=== PATIENT | female | born 1930 | race Caucasian/White ===

== ENCOUNTER 2018-08-08 13:05 | Emergency (ER) | payer MEDICARE, OTHER ==
--- NOTE | 2018-08-08 13:53 | CT ---
CT brain noncontrast HISTORY: Headache. Hypertension. FINDINGS: There is no evidence of acute intracranial hemorrhage or infarct. Ill-defined areas of decr eased density within the right posterior frontal periventricular white matter is favored to represent chronic ischemic small vessel disease. There is no mass effect or shift of midline structur es. Slight diffuse cortical atrophy. Calcification within the arterial structures of the brain base. IMPRESSION: Atherosclerosis. Chronic-type findings. No acute intracranial abnormalities are demonstrated.
[2018-08-08] MEDS ORDERED: Acetaminophen 325 MG TAB ONE ×2 (14:10)
== END 2018-08-08 15:20 | disposition home or self-care (01) ==
LOC: ERS 13:05
DX: I10 Essential (primary) hypertension (principal); E78.00 Pure hypercholesterolemia, unspecified; I20.9 Angina pectoris, unspecified; Z79.899 Other long term (current) drug therapy; Z79.82 Long term (current) use of aspirin
CPT/HCPCS: 70450; 93005

== ENCOUNTER 2018-08-31 15:40 | Inpatient (IN) | payer MEDICARE, OTHER ==
--- NOTE | 2018-08-31 16:05 | RAD ---
FRONTAL VIEW CHEST: 08/31/18 COMPARISON: 06/11/16. INDICATION: New onset pain. FINDINGS: There is subtle added density at the inferior left chest. The right hemidiaphragm is elevated. The ca rdiomediastinal silhouette is similar in appearance. IMPRESSION: Patchy left basilar density. This could be on the basis of scarring or subtle area of alveolar infilt ration. Recommend follow-up with two view chest for further evaluation. Code T POS: CET
[2018-08-31 16:06] LABS: #Basophils 0.1 thou/uL (0.0-0.2); #Eosinphils 0.3 thou/uL (0.0-0.7); #Lymphocytes 2.9 thou/uL (1.20-3.40); #Monocytes 0.9 thou/uL (0.11-0.59); #Neutrophils 8.5 thou/uL (1.40-6.50); %Basophils 0.8 % (0.0-1.0); %Eosinophils 2.5 % (0.0-10.0); %Neutrophils 66.7 % (42.0-75.0); Hemoglobin 13.7 g/dL (12.0-16.0); Mean Corpuscular HGB CONC 33.2 g/dL (32.0-36.0); Mean Corpuscular Hemoglobin 29.6 pg (27.0-31.0); Mean Platelet Volume 8.3 fL (7.4-10.4); Platelet Count 413 thou/uL (130-400); RBC Distribution Width 12.3 % (11.5-14.5); Red Blood Cell (RBC) Count 4.64 mill/uL (4.20-5.40); White Blood Cell (WBC) Count 12.7 thou/uL (4.8-10.8)
[2018-08-31 16:30] LABS: ALT (SGPT) 10 U/L (8-55); AST (SGOT) 16 U/L (5-34); Albumin 4.5 g/dL (3.4-4.8); Alkaline Phosphatase 47 U/L (40-150); Anion Gap 14 mmol/L (10-20); BUN (Urea Nitrogen) 45 mg/dL (9.8-20.1); Bilirubin, Total 0.3 mg/dL (0.2-1.2); CK (CPK) 32 U/L (29-168); Calc. Creatinine Clearance 0 mL/min (70-130); Calcium 10.1 mg/dL (7.8-10.44); Carbon Dioxide 22 mmol/L (23-31); Chloride 105 mmol/L (98-107); Estimated GFR-MDRD 18; Glucose 168 mg/dL (83-110); Lipase 65 U/L (8-78); Potassium 4.8 mmol/L (3.5-5.1); Protein, Total 7.5 g/dL (6.0-8.3); Sodium 136 mmol/L (136-145)
[2018-08-31] MEDS ORDERED: Aspirin Chewable 81 MG TAB ONE (16:33)
[2018-08-31] MEDS ORDERED: Nitroglycerin 2% Ointment 1 INCH/1 GM Packet ONE (16:33)
[2018-08-31] MEDS ORDERED: Sodium Chloride 0.9% 1,000 ML IV SCH (18:59)
[2018-08-31] MEDS ORDERED: Ondansetron PF 4 MG/2 ML Vial IVP PRN (18:59)
[2018-08-31] MEDS ORDERED: Ondansetron ODT 4 MG TAB SL PRN (18:59)
[2018-08-31 19:01] VITALS: BMI 24.0
[2018-08-31 19:50] LABS: Troponin I Less than 0.010 ng/mL (< 0.028)
[2018-08-31] MEDS ORDERED: Nitroglycerin 0.4 MG TAB (25 Tab Bottle) SL PRN (22:00)
[2018-08-31 22:30] LABS: Troponin I Less than 0.010 ng/mL (< 0.028)
[2018-08-31] MEDS ORDERED: Rosuvastatin 20 MG TAB PO SCH (22:30)
[2018-08-31] MEDS: Sodium Chloride 0.9% 1,000 ML IV SCH (23:31)
--- NOTE | 2018-09-01 02:27 | HP ---
PRIMARY CARE PHYSICIAN: Tommy Barrios MD CHIEF COMPLAINT: Chest pain/angina. HISTORY OF PRESENT ILLNESS: Ms. Fagan is an 87-year-old female with a past medical history of angina, hypertension, hyperlipidemia, osteoporosis, and coronary artery disease status post CABG x7, who has presented to [facility] earlier today for worsening chest pain. She states that the pain worsened when she was up and active. However, the pain resolves when she was at rest. She states that before when she would take her oral nitroglycerin at home, this would help with the pain. However, this was not helping today. Therefore, she wanted to come in to get thorough workup to rule out some causes of her chest pain. She states that she sees Dr. Mclaughlin, whom she had seen roughly 6 weeks ago for changes to her home medications. She states she had noticed her blood pressure worsening. However, after these changes, she states that her blood pressure has been better controlled. She had denied any fever, chills, any headache, blurred vision, dizziness, any palpitations, shortness of breath, abdominal pain, nausea, or vomiting. Her initial workup included serial troponins, which were found to be less than 0.010. She also was found to be with an acute kidney injury with a creatinine of 2.57, estimated GFR of 18. In the emergency department, she was started on IV fluid with normal saline, was given topical 1-inch nitroglycerin paste and oral aspirin 325 mg. It was determined at that time the patient be admitted for further workup and ACS rule out. REVIEW OF SYSTEMS: All other systems reviewed and found to be negative unless mentioned in the HPI. PAST MEDICAL HISTORY: Hypertension, hyperlipidemia, coronary artery disease, and angina. PAST SURGICAL HISTORY: Coronary artery bypass x7 vessels, bladder surgery, appendectomy, cholecystectomy, hysterectomy, tonsillectomy, and spinal fusion. PSYCHIATRIC HISTORY: None. SOCIAL HISTORY: The patient denies any alcohol, tobacco, or illicit drug use. KNOWN ALLERGIES: Codeine and sulfa. CURRENT HOME MEDICATIONS: 1. Aspirin 81 mg daily. 2. Amlodipine 2.5 mg p.o. daily. 3. Clonidine 0.1 mg p.o. p.r.n. hypertension. 4. Clopidogrel 75 mg p.o. Tuesday, Tuesday, and Tuesday. 5. Furosemide 20 mg p.o. daily. 6. Isosorbide 60 mg p.o. daily. 7. Nitroglycerin 0.4 mg sublingual every 5 minutes as needed for chest pain. 8. Benicar 40 mg p.o. daily. 9. Ranexa 500 mg p.o. b.i.d. 10. Rosuvastatin 20 mg p.o. at bedtime. 11. CoQ10 of 200 mg p.o. daily. 12. Restasis 0.4 mL each eye b.i.d. 13. Polyethylene glycol 17 g p.o. daily. 14. [place]-3 of 2 g p.o. b.i.d. 15. Fluticasone one spray each nostril daily. 16. Estradiol 10 mcg intravaginally 2 times a week. 17. Nexium 40 mg p.o. daily. 18. Vitamin D3 two tabs p.o. daily. 19. Cetirizine 10 mg p.o. at bedtime. 20. Calcium 600 mg p.o. b.i.d. PHYSICAL EXAMINATION: VITAL SIGNS: BP 167/74, respirations 18, pulse 71, temp 97.4 degrees Fahrenheit, O2 saturations 98% on room air. GENERAL: The patient is awake, alert, and oriented x3. She is currently lying comfortably in bed and in no acute distress at this time. HEENT: Atraumatic, normocephalic. Pupils are round and reactive to light. Extraocular muscles intact. Moist mucous membranes noted. CARDIOVASCULAR: Positive S1 and S2. Regular rate and rhythm. No murmur auscultated. RESPIRATORY: Clear to auscultation bilaterally. No wheezes, rales, or rhonchi. ABDOMEN: Soft and nontender. Bowel sounds present. MUSCULOSKELETAL: Strength 5+ bilaterally in upper and lower extremities. Moves all extremities equal. Pedal and radial pulses are 2+ bilaterally. No edema noted. NEUROLOGIC: Cranial nerves 2 through 12 grossly intact. No focal deficits noted. Speech intact and normal. Gait not assessed. SKIN: Warm, dry, and intact. No rashes. No ulceration noted. PSYCHIATRIC: Good mood and affect. LABORATORY DATA: WBC 12.7, RBC 4.64, hemoglobin 13.7, platelets 413. Sodium 136, potassium 4.8, anion gap 14, BUN 45, creatinine 2.57, estimated GFR 18, glucose 168. Troponin less than 0.010. BNP 37.9. Lipase 65. DIAGNOSTIC IMAGING: Portable chest x-ray showed patchy left basilar density. This could be on the basis of scarring or subtle area of alveolar infiltration. Recommend followup with two-view chest for further evaluation. ASSESSMENT AND PLAN: 1. Unstable angina. The patient will be restarted on her home medications at this time. We will order stress test for the morning to rule out acute coronary syndrome and Cardiology Services will be consulted for further evaluation and any further recommendation on adjusting her home medications. 2. Hypertension. Continue patient's home regimen and to monitor blood pressure and other vital signs closely. 3. Hyperlipidemia. Continue patient's home statin and check a lipid panel in the morning. 4. History of coronary artery disease. As above, continue on patient's home regimen. 5. Deep venous thrombosis and gastrointestinal prophylaxis. 6. Code status, full code. 7. Surrogate decision maker is her , Rudy. DISPOSITION: Pending further workup and clinical findings. Job ID: [id number]
[2018-09-01 05:33] LABS: #Basophils 0.1 thou/uL (0.0-0.2); #Eosinphils 0.5 thou/uL (0.0-0.7); #Lymphocytes 3.1 thou/uL (1.20-3.40); #Monocytes 0.9 thou/uL (0.11-0.59); #Neutrophils 7.6 thou/uL (1.40-6.50); %Basophils 0.6 % (0.0-1.0); %Eosinophils 4.1 % (0.0-10.0); %Lymphocytes 25.8 % (21.0-51.0); %Monocytes 7.4 % (0.0-10.0); %Neutrophils 62.1 % (42.0-75.0); Hemoglobin 11.6 g/dL (12.0-16.0); Mean Corpuscular HGB CONC 32.6 g/dL (32.0-36.0); Mean Corpuscular Hemoglobin 29.3 pg (27.0-31.0); Mean Corpuscular Volume 89.8 fL (78.0-98.0); Mean Platelet Volume 8.4 fL (7.4-10.4); Platelet Count 309 thou/uL (130-400); RBC Distribution Width 12.2 % (11.5-14.5); Red Blood Cell (RBC) Count 3.96 mill/uL (4.20-5.40); White Blood Cell (WBC) Count 12.2 thou/uL (4.8-10.8)
[2018-09-01 05:38] LABS: Anion Gap 9 mmol/L (10-20); BUN (Urea Nitrogen) 36 mg/dL (9.8-20.1); Calc. Creatinine Clearance 21 mL/min (70-130); Calcium 8.8 mg/dL (7.8-10.44); Carbon Dioxide 22 mmol/L (23-31); Cardiac Risk 3.2 (Less than 4.5); Chloride 110 mmol/L (98-107); Cholesterol 112 mg/dl (< 200 Desired); Estimated GFR-MDRD 26; Glucose 99 mg/dL (83-110); HDL Cholesterol 35 mg/dL (>60 Neg Risk); LDL Cholesterol, Calculated 39 mg/dL; Potassium 4.3 mmol/L (3.5-5.1); Sodium 137 mmol/L (136-145); Triglycerides 192 mg/dL (Less than 150)
[2018-09-01] MEDS: Aspirin 81 mg Enteric Coated Tablet PO SCH (08:30)
[2018-09-01] MEDS: Ubidecarenone 50 MG CAP PO SCH (08:31)
[2018-09-01] MEDS: Furosemide 20 MG TAB PO SCH (08:32)
[2018-09-01] MEDS: Clopidogrel Bisulfate 75 MG TAB PO SCH (08:32)
[2018-09-01 08:53] LABS: Lactic Acid 0.6 mmol/L (0.5-2.2)
[2018-09-01] MEDS ORDERED: Amlodipine 5 MG TAB PO SCH ×2 (09:00→19:13)
[2018-09-01] MEDS ORDERED: ADENOSINE 60 MG/20 ML VIAL ONE (10:35)
[2018-09-01] MEDS: Polyethylene Glycol 3350 17 GM Packet PO SCH (12:54)
--- NOTE | 2018-09-01 13:20 | NM ---
Radionucleotide stress and rest myocardial perfusion scan with CT attenuation correction and SPECT im aging Left ventricular wall motion evaluation and ejection fraction HISTORY: Chest pain. FINDINGS: Adenosine protocol. There is heterogeneous uptake of radiotracer throughout the left ventri cular myocardium. On the perfusion images, a moderate sized area of markedly diminished radiotracer uptake involves the entirety of the anteroseptal wall on the stress images with more normal distribut ion of radiotracer uptake on the rest images. No other perfusion defect or reversibility demonstrated. QGS analysis of gated SPECT images shows no focal wall motion abnormalities. Ejection fraction calcul ated at 77%. IMPRESSION: Abnormal myocardial perfusion scan showing reversibility at the anteroseptal wall suggest renetta of ischemia. Preserved LVEF.
--- NOTE | 2018-09-01 13:32 | PDOC.CTH ---
Cardiology Progress Note - Objective Vital Signs Temp Pulse Resp BP BP Pulse Ox 09/01/18 12:50 97.5 F L 59 L 16 175/77 H 98 09/01/18 08:30 58 L 09/01/18 07:21 97.4 F L 64 16 145/63 H 99 09/01/18 04:43 97.8 F 71 18 131/66 97 Weight 59.602 kg 08/31/18 09/01/18 09/02/18 06:59 06:59 06:59 Intake Total 890 Output Total 900 675 Balance -10 -885 - Labs Result Diagrams: 09/01/18 04:43 09/01/18 04:44 Troponin/CKMB Troponin I Less than 0.010 ng/mL (< 0.028) 08/31/18 21:58 - Assessment/Plan HPI: This is an 87 yo F who was admitted for ACS r/o. She had CABG in 2000 and again in 2007. Most recent cath was in 2015 which showed 3 vessel disease with patent grafts. Yesterday afternoon while walking back to her room from dinner she developed left sided chest pain described as band-like wrapping around to her back. She states that the pain radiated down her left arm and last about 30-40 minutes. She took some nitroglycerin at home but did not get relief until receiving treatment at the ER. She states that in the last 3 months she has had 4-5 episodes of chest pain similar to this one. She denies shortness of breath, palpitations, diaphoresis, leg pain, or recent immobilization. PMH: HTN, HLD, CAD PSH: hysterectomy, cholecystectomy, appendectomy, cervical fusion Meds: isosorbide, olmesartan, amlodipine, rosuvastatin, clonidine, clonidine, estradiol vaginally, asa, nitroglycerin, Plavix, ranexa Allergies: sulfa Soc Hx: no smoking, alcohol, or drugs Fm Hx: father from [place] at 62 REVIEW OF SYSTEMS: Gen: no fever, chills, or sweats Neuro: no numbness/tingling, no weakness, no headache Eyes: no visual changes ENT: no hearing changes, no sore throat, no runny nose Resp: no cough, no SOB, no wheeze Card: see hpi GI: no N/V/D, no abdominal pain Skin: no rash, no erythema PHYSICAL EXAMINATION: General: NAD, alert and oriented x3 HEENT: PERRLA, EOMI, normal sclera, oropharynx without erythema or exudate Neck: Supple. Full ROM. Heart/Cardiovascular System: RRR, Cap refill < 3 seconds, no rub, no murmur, pain to palpation of chest wall Lungs/Respiratory System: clear to auscultation bilaterally. No increased work of breathing. Room air. Abdomen/Gastro-Intestinal System: no abdominal tenderness, normal bowel sounds, no masses, no organomegaly Extremities: Warm extremities. No cyanosis or edema. Neuro: No gross deficits appreciated Psychiatry: Awake, Alert and cooperative with exam Skin: No lesions, rashes, or ulcers A/P: # Chest pain, r/o ACS - trop neg x2 - EKG shows t-inv in V4, no q-waves, st changes - last cath Mar 2015 showed 3 vessel disease with patent grafts - abnormal stress test, patient may need catheterization, will discuss with Dr. Pinzon and family # HTN - would recommend titrating up on amlodipine, only at 2.5mg as of now - Plan to be reviewed with Dr. Pinzon see note to follow
[2018-09-01 13:34] LABS: Bilirubin Negative (Negative); Blood, Urine Trace (Negative); Clarity CLOUDY (Clear); Glucose, Urine (Dipstick) Negative (Negative); Leukocyte Large (Negative); Nitrite Negative (Negative); Protein, Urine (Dipstick) Negative (Neg-Trace); Specific Gravity, Urine 1.007 (1.002-1.036); Urobilinogen 0.2 mg/dL (0.2-1.0); pH, Urine 6.5 (5.0-9.0)
[2018-09-01 13:37] LABS: Hyaline Casts/LPF 0-3 HYALINE CAST LPF (0-3 Hyaline); Pathc Cast-AUWi Flag 0.13 (0-2.49); RBC/HPF 0-3 HPF (0-3); Squamous Epithelial None Seen HPF (0-3)
--- NOTE | 2018-09-01 13:40 | PDOC.PN ---
- Subjective Encounter Start Date: 09/01/18 Encounter Start Time: 13:38 Subjective: Patient presented with central chest pressure and states it has been -: constant. Slightly worsened during stress test, but not back to what it was -: when she presented. Unable to rate severity, as she states its not "pain". She complains of feeling hungry but otherwise has no complaints. No sob. No n/v. Denies any abdominal pain. No lower leg swelling. - Objective Vital Signs & Weight: Vital Signs (12 hours) Temp Pulse Resp BP BP Pulse Ox 09/01/18 12:50 97.5 F L 59 L 16 175/77 H 98 09/01/18 08:30 58 L 09/01/18 07:21 97.4 F L 64 16 145/63 H 99 09/01/18 04:43 97.8 F 71 18 131/66 97 Weight Weight 131 lb 6.4 oz I&O: 08/31/18 09/01/18 09/02/18 06:59 06:59 06:59 Intake Total 890 Output Total 900 675 Balance -10 675 Result Diagrams: 09/01/18 04:43 09/01/18 04:44 Phys Exam - Physical Examination Constitutional: NAD HEENT: PERRLA, moist MMs, sclera anicteric, oral pharynx no lesions Neck: no nodes, no JVD, supple, full ROM Respiratory: no wheezing, no rales, no rhonchi, clear to auscultation bilateral Cardiovascular: RRR Gastrointestinal: soft, non-tender, no distention, positive bowel sounds Musculoskeletal: no edema, pulses present Neurological: non-focal, normal sensation, moves all 4 limbs Lymphatic: no nodes Psychiatric: normal affect, A&O x 3 Skin: no rash Dx/Plan (1) Chest pain Code(s): R07.9 - CHEST PAIN, UNSPECIFIED Status: Acute Plan: Persisting chest pressure, since admission. Worsened during stress test. Patient with abnormal myocardial perfusion scan. Notable for reversibility at the anteroseptal wall suggesting ischemia. EF 77% Patient awaiting cardio review. We will keep her NPO pending recommendations. (2) Hypertension Code(s): I10 - ESSENTIAL (PRIMARY) HYPERTENSION Status: Chronic Plan: Continue meds and monitor BP. (3) Hyperlipidemia Code(s): E78.5 - HYPERLIPIDEMIA, UNSPECIFIED Status: Acute (4) CAP (community acquired pneumonia) Code(s): J18.9 - PNEUMONIA, UNSPECIFIED ORGANISM Status: Acute Plan: Omnicef 300 mg PO daily. Monitor WCC. - Plan cont current plan of care * .
[2018-09-01 14:04] LABS: Bacteria/HPF 4+ HPF (None Seen); Yeast-All Forms None Seen HPF (None Seen)
[2018-09-01 14:06] LABS: Urine Culture Reflex Yes Yes
[2018-09-01] MEDS ORDERED: Cefdinir 300 MG CAP PO SCH (14:30)
--- NOTE | 2018-09-01 17:10 | CON ---
DATE OF CONSULTATION: REASON FOR CONSULTATION: Chest pain. HISTORY OF PRESENT ILLNESS: Ms. Fagan is a very pleasant 87-year-old woman, who is a patient of Dr. Kavin Mclaughlin. She has a history of CAD, status post bypass surgery. She recently presented with accelerating angina. She states she has had angina in the past and had been treated medically. She underwent coronary angiography in 2016 with images of the angio reviewed. She does have an occluded left main and right coronary artery. She has a VELAZQUEZ to the LAD that appears atretic. Her saphenous vein graft to the diagonal branch is patent with backfilling of the LAD. The LAD appears diffusely diseased. The circumflex artery has a saphenous vein graft noted with a jump graft in OM1 and OM2 and has a saphenous vein graft to the right coronary artery. She does have diffuse disease present within the LAD and septal branches. PAST MEDICAL HISTORY: Please see note per Felix Casper MD, dated 09/01/2018. PHYSICAL EXAMINATION: GENERAL: Patient is a pleasant woman who is in no acute distress. The patient appears their stated age. VITAL SIGNS: Blood pressure 138/65, pulse 75, temperature 97.5. NEUROLOGIC: The patient is alert and oriented x3 with no focal neurologic deficits. HEENT: Sclerae without icterus. Mouth has moist mucous membranes with normal pallor. NECK: No JVD. Carotid upstroke brisk. No bruits bilaterally. LUNGS: Clear to auscultation with unlabored respirations. BACK: No scoliosis or kyphosis. CARDIAC: Regular rate and rhythm with normal S1 and S2. No S3 or S4 noted. No significant rubs, murmurs, thrills, or gallops noted throughout the precordium. PMI is not displaced. There is no parasternal heave. ABDOMEN: Soft, nontender, nondistended. No peritoneal signs present. No hepatosplenomegaly. No abnormal striae. EXTREMITIES: 2+ femoral and 2+ dorsalis pedis pulses. No cyanosis, clubbing, or edema. SKIN: No gross abnormalities. PERTINENT LABORATORY DATA: Hemoglobin 11.6. Creatinine 1.82 with a creatinine clearance of 20. Stress/rest myocardial perfusion study - LVEF 77% with reversibility along the anteroseptal region. IMPRESSION: 1. Angina. 2. Severe coronary artery disease. 3. Status post bypass surgery. 4. Advanced chronic kidney disease. RECOMMENDATIONS: Certainly difficult situation with Ms. Fagan. I would like to proceed with angio to assess her coronary anatomy, but given her recent stress study with anteroseptal ischemia and reviewing her angio, this is unlikely to be revascularized. She also has a creatinine clearance of 20, which would increase her risk of further contrast nephropathy in addition to a potential renal failure. I have discussed the option with the family. We have all opted to proceed with continued medical therapy. We will change her Imdur to nitroglycerin patch. We will continue Ranexa in addition to beta-rani therapy. I have asked her to walk around and reassess symptoms. Plan is to monitor over the next 24 to 48 hours. If she is stable from a medical standpoint, it would be okay for discharge. If continues to have pain, we will then discuss proceeding with angio, but concerned for contrast nephropathy given advanced chronic kidney disease. The family would like to defer angio unless strongly recommended, which at this point is not. Job ID: [id number]
[2018-09-01] MEDS: Sodium Chloride 0.9% 1,000 ML IV SCH (19:13)
[2018-09-01] MEDS: Rosuvastatin 20 MG TAB PO SCH (21:41)
[2018-09-02] MEDS: cloNIDine 0.1 MG TAB PO PRN (00:21)
[2018-09-02 07:33] LABS: #Basophils 0.1 thou/uL (0.0-0.2); #Eosinphils 0.5 thou/uL (0.0-0.7); #Lymphocytes 2.8 thou/uL (1.20-3.40); #Monocytes 0.6 thou/uL (0.11-0.59); #Neutrophils 3.7 thou/uL (1.40-6.50); %Eosinophils 6.5 % (0.0-10.0); %Lymphocytes 36.5 % (21.0-51.0); %Monocytes 7.5 % (0.0-10.0); %Neutrophils 48.5 % (42.0-75.0); Hemoglobin 12.8 g/dL (12.0-16.0); Mean Corpuscular HGB CONC 33.2 g/dL (32.0-36.0); Mean Corpuscular Hemoglobin 29.8 pg (27.0-31.0); Mean Corpuscular Volume 89.7 fL (78.0-98.0); Mean Platelet Volume 8.3 fL (7.4-10.4); Platelet Count 324 thou/uL (130-400); RBC Distribution Width 12.3 % (11.5-14.5); Red Blood Cell (RBC) Count 4.31 mill/uL (4.20-5.40); White Blood Cell (WBC) Count 7.7 thou/uL (4.8-10.8)
[2018-09-02] MEDS: Clopidogrel Bisulfate 75 MG TAB PO SCH (07:48)
[2018-09-02] MEDS: Polyethylene Glycol 3350 17 GM Packet PO SCH (07:48)
[2018-09-02] MEDS: Ubidecarenone 50 MG CAP PO SCH (07:49)
[2018-09-02] MEDS: Furosemide 20 MG TAB PO SCH (07:49)
[2018-09-02] MEDS: Aspirin 81 mg Enteric Coated Tablet PO SCH (07:49)
[2018-09-02] MEDS: Cefdinir 300 MG CAP PO SCH (07:49)
[2018-09-02 08:00] LABS: Anion Gap 10 mmol/L (10-20); BUN (Urea Nitrogen) 24 mg/dL (9.8-20.1); Calc. Creatinine Clearance 27 mL/min (70-130); Calcium 9.6 mg/dL (7.8-10.44); Carbon Dioxide 23 mmol/L (23-31); Chloride 110 mmol/L (98-107); Estimated GFR-MDRD 35; Glucose 100 mg/dL (83-110); Potassium 4.3 mmol/L (3.5-5.1); Sodium 139 mmol/L (136-145)
[2018-09-02] MEDS ORDERED: Nitroglycerin 0.4mg/Hour PATCH TD SCH (09:00)
--- NOTE | 2018-09-02 13:36 | PDOC.CTH ---
Cardiology Progress Note - Subjective c/o BP spiking last night and this morning. Also had diarrhea this morning. Mild CP, but improved. - Objective Vital Signs Temp Pulse Resp BP Pulse Ox 09/02/18 11:30 97.9 F 58 L 18 129/62 93 L 09/02/18 09:59 62 109/60 09/02/18 07:48 59 L 09/02/18 07:14 97.9 F 59 L 18 183/79 H 95 09/02/18 04:00 97.9 F 55 L 18 107/54 L 97 09/02/18 02:10 63 105/54 L Weight 131 lb 6.4 oz 09/01/18 09/02/18 09/03/18 06:59 06:59 06:59 Intake Total 890 1362 Output Total 900 975 Balance -10 387 - Physical Examination General/Neuro: alert & oriented x3 Neck: no JVD present Lungs: CTA Heart: RRR Abdomen: NT/ND - Telemetry Telemetry Rhythm: SR - Labs Result Diagrams: 09/02/18 07:17 09/02/18 07:17 Troponin/CKMB Troponin I Less than 0.010 ng/mL (< 0.028) 08/31/18 21:58 - Assessment/Plan 1. CP, probable angina 2. CKD 3. Diarrhea secondary to IBS 4. Labile HTN Continue IV fluids and current meds. Observe. If pain reoccurs discussed possible angio again. Advised patient to walk as she can. Fall prevention discussed given diarrhea. Pt was seen and examined. Agree with the above assessment. Increase norvasc and increase nitro patch Pt with midl CP with exertion Difficult situation given comorbidities
--- NOTE | 2018-09-02 15:02 | PDOC.PN ---
- Subjective Encounter Start Date: 09/02/18 Encounter Start Time: 09:00 Subjective: pt up in bed complains of chest pain - Objective Vital Signs & Weight: Vital Signs (12 hours) Temp Pulse Resp BP Pulse Ox 09/02/18 11:30 97.9 F 58 L 18 129/62 93 L 09/02/18 09:59 62 109/60 09/02/18 07:48 59 L 09/02/18 07:14 97.9 F 59 L 18 183/79 H 95 09/02/18 04:00 97.9 F 55 L 18 107/54 L 97 Weight Weight 131 lb 6.4 oz I&O: 09/01/18 09/02/18 09/03/18 06:59 06:59 06:59 Intake Total 890 1362 Output Total 900 975 Balance -10 387 Result Diagrams: 09/02/18 07:17 09/02/18 07:17 Phys Exam - Physical Examination Neck: no nodes, no JVD, supple, full ROM Respiratory: no wheezing, no rales, no rhonchi, wheezing present, clear to auscultation bilateral Cardiovascular: RRR, no significant murmur, no rub, gallop, irregular Gastrointestinal: soft, non-tender, no distention, positive bowel sounds Dx/Plan (1) Chest pain Code(s): R07.9 - CHEST PAIN, UNSPECIFIED Status: Acute (2) UTI (urinary tract infection) Status: Acute (3) CAP (community acquired pneumonia) Code(s): J18.9 - PNEUMONIA, UNSPECIFIED ORGANISM Status: Acute (4) Irritable bowel syndrome Status: Acute - Plan pt had 4 bouts of diarrhea today, will add probiotic. she has IBS -: pt had some chest pain and has been having labile bp. -: renal function improving * . Review of Systems - Review of Systems Respiratory: negative: Cough, Dry, Shortness of Breath, Hemoptysis, SOB with Excertion, Pleuritic Pain, Sputum, Wheezing Cardiovascular: chest pain - Medications/Allergies Allergies/Adverse Reactions: Allergies Allergy/AdvReac Type Severity Reaction Status Date / Time codeine Allergy N/V, Verified 03/11/15 23:54 HALLUCINATIONS Sulfa (Sulfonamide Allergy SEVERE N/V Verified 03/11/15 23:54 Antibiotics) Medications: Current Medications Acetaminophen (Tylenol) 650 mg PO Q6H PRN PRN Reason: Fever>101/(Mi/Mod/Sev) Pain Amlodipine Besylate (Norvasc) 5 mg PO DAILY [facility] Last Admin: 09/02/18 07:48 Dose: 5 mg Aspirin (Ecotrin) 81 mg PO DAILY [facility] Last Admin: 09/02/18 07:49 Dose: 81 mg Cefdinir (Omnicef) 300 mg PO DAILY [facility] Last Admin: 09/02/18 07:49 Dose: 300 mg Clonidine (Catapres) 0.1 mg PO DAILYPRN PRN PRN Reason: PRN SBP > 190 Last Admin: 09/02/18 00:21 Dose: 0.1 mg Clopidogrel Bisulfate (Plavix) 75 mg PO MWF [facility] Last Admin: 09/02/18 07:48 Dose: 75 mg Coenzyme Q10 (Coenzyme Q10) 200 mg PO DAILY [facility] Last Admin: 09/02/18 07:49 Dose: 200 mg Furosemide (Lasix) 20 mg PO DAILY [facility] Last Admin: 09/02/18 07:49 Dose: 20 mg Sodium Chloride (Normal Saline 0.9%) 1,000 mls @ 50 mls/hr IV .Q20H [facility] Last Admin: 09/01/18 19:13 Dose: 1,000 mls Nitroglycerin (Nitrostat) 0.4 mg SL Q5MIN PRN PRN Reason: Chest Pain Nitroglycerin (Nitro-Dur 0.4mg/Hr Patch) 1 patch TD DAILY [facility] Last Admin: 09/02/18 07:48 Dose: 1 patch Olmesartan (Benicar) 40 mg PO DAILY [facility] Last Admin: 09/02/18 07:49 Dose: 40 mg Polyethylene Glycol (Miralax) 17 gm PO DAILY [facility] Last Admin: 09/02/18 07:48 Dose: Not Given Ranolazine (Ranexa) 500 mg PO BID [facility] Last Admin: 09/02/18 07:48 Dose: 500 mg Rosuvastatin Calcium (Crestor) 20 mg PO HS [facility] Last Admin: 09/01/18 21:41 Dose: 20 mg Saccharomyces Boulardii (Florastor) 250 mg PO DAILY [facility] Sodium Chloride (Flush - Normal Saline) 10 ml IVF Q12HR [facility] Last Admin: 09/02/18 07:50 Dose: 10 ml Sodium Chloride (Flush - Normal Saline) 10 ml IVF PRN PRN PRN Reason: Saline Flush
--- NOTE | 2018-09-02 15:09 | EKG ---
Test Reason : Blood Pressure : / mmHG Vent. Rate : 076 BPM Atrial Rate : 076 BPM P-R Int : 150 ms QRS Dur : 076 ms QT Int : 352 ms P-R-T Axes : 058 046 106 degrees QTc Int : 396 ms Normal sinus rhythm Possible Left atrial enlargement Nonspecific ST and T wave abnormality Abnormal ECG Confirmed by AMARI NG ([id number]), publication editor MORELIA KEITH ([id number]) on 09/02/2018 3:09:00 PM Referred By: Confirmed By:AMARI NG
[2018-09-02] MEDS: Sodium Chloride 0.9% 1,000 ML IV SCH (16:56)
[2018-09-02] MEDS: Saccharomyces boulardii 250 MG CAP PO SCH (16:59)
[2018-09-02] MEDS: Rosuvastatin 20 MG TAB PO SCH (21:30)
[2018-09-03] MEDS: Cefdinir 300 MG CAP PO SCH (08:27)
[2018-09-03] MEDS: Amlodipine 5 MG TAB PO SCH (08:28)
[2018-09-03] MEDS: Ubidecarenone 50 MG CAP PO SCH (08:29)
[2018-09-03] MEDS: Aspirin 81 mg Enteric Coated Tablet PO SCH (08:29)
[2018-09-03] MEDS: Nitroglycerin 0.6mg/Hour PATCH TD SCH (08:29)
[2018-09-03] MEDS: Furosemide 20 MG TAB PO SCH (08:29)
[2018-09-03] MEDS: Polyethylene Glycol 3350 17 GM Packet PO SCH (08:30)
--- NOTE | 2018-09-03 11:14 | PDOC.CTH ---
Cardiology Progress Note - Subjective Patient now with UTI. Says she walked two hallways yesterday and had chest pressure by the end of the walk. None at rest. BP still somewhat labile, but improved. - Objective Vital Signs Temp Pulse Resp BP Pulse Ox 09/03/18 08:28 65 09/03/18 07:18 98.3 F 65 18 167/72 H 95 09/03/18 03:16 98.4 F 60 15 134/63 97 Weight 132 lb 3.2 oz 09/02/18 09/03/18 09/04/18 06:59 06:59 06:59 Intake Total 1362 920 Output Total 975 1850 Balance 387 -930 - Physical Examination General/Neuro: alert & oriented x3 Neck: no JVD present Lungs: CTA Heart: RRR Abdomen: NT/ND - Telemetry Telemetry Rhythm: SR - Labs Result Diagrams: 09/02/18 07:17 09/03/18 11:09 Troponin/CKMB Troponin I Less than 0.010 ng/mL (< 0.028) 08/31/18 21:58 - Assessment/Plan 1. CP, probable angina 2. CKD 3. Diarrhea secondary to IBS 4. Labile HTN Continue nitrates and Ranexa. BP improved overall though still labile. She is currently in bed. Advised her to walk after lunch in [place]. If CP reoccurs, will probably need repeat angio. Aware of risk of contrast nephropathy. Pt continues with CP noted with ambulation. Pt on ranexa and nitro patch. Attempted medical therapy to relive symptoms. Despite meds, it continues. Pt at increased risk of complications during angio. Pt understands and family understand the risk of contrast nephropathy. May need to stage the angio. R/B discussed with pt and =family. Start IVF. Dr. Mclaughlin to discuss with pt in am
[2018-09-03] MEDS: Sodium Chloride 0.9% 1,000 ML IV SCH ×2 (11:42→15:16)
[2018-09-03 11:52] LABS: Anion Gap 13 mmol/L (10-20); BUN (Urea Nitrogen) 21 mg/dL (9.8-20.1); Calc. Creatinine Clearance 26 mL/min (70-130); Calcium 8.9 mg/dL (7.8-10.44); Carbon Dioxide 21 mmol/L (23-31); Estimated GFR-MDRD 34; Glucose 175 mg/dL (83-110)
[2018-09-03 12:09] LABS: Chloride 108 mmol/L (98-107); Sodium 138 mmol/L (136-145)
--- NOTE | 2018-09-03 14:27 | PDOC.PN ---
- Subjective Encounter Start Date: 09/03/18 Encounter Start Time: 10:15 Subjective: pt up ambulating had some cp - Objective Vital Signs & Weight: Vital Signs (12 hours) Temp Pulse Resp BP Pulse Ox 09/03/18 11:25 98.3 F 62 17 139/63 94 L 09/03/18 08:28 65 09/03/18 07:18 98.3 F 65 18 167/72 H 95 09/03/18 03:16 98.4 F 60 15 134/63 97 Weight Weight 132 lb 3.2 oz I&O: 09/02/18 09/03/18 09/04/18 06:59 06:59 06:59 Intake Total 1362 920 Output Total 975 1850 Balance 387 -930 Result Diagrams: 09/02/18 07:17 09/03/18 11:09 Phys Exam - Physical Examination Neck: no nodes, no JVD, supple, full ROM Respiratory: no wheezing, no rales, no rhonchi, wheezing present, clear to auscultation bilateral Cardiovascular: RRR, no significant murmur, no rub, gallop, irregular Gastrointestinal: soft, non-tender, no distention, positive bowel sounds Dx/Plan (1) Chest pain Code(s): R07.9 - CHEST PAIN, UNSPECIFIED Status: Acute (2) UTI (urinary tract infection) Status: Acute (3) CAP (community acquired pneumonia) Code(s): J18.9 - PNEUMONIA, UNSPECIFIED ORGANISM Status: Acute (4) CKD (chronic kidney disease) stage 3, GFR 30-59 ml/min Code(s): N18.3 - CHRONIC KIDNEY DISEASE, STAGE 3 (MODERATE) Status: Acute - Plan will continue to monitor, she is still having cp -: on abx for uti, possible angio per cardio however she is -: at a risk for nephropathy from contrast * . Review of Systems - Review of Systems Respiratory: negative: Cough, Dry, Shortness of Breath, Hemoptysis, SOB with Excertion, Pleuritic Pain, Sputum, Wheezing Cardiovascular: negative: chest pain, palpitations, orthopnea, paroxysmal nocturnal dyspnea, edema, light headedness, other Gastrointestinal: negative: Nausea, Vomiting, Abdominal Pain, Diarrhea, Constipation, Melena, Hematochezia, Other - Medications/Allergies Allergies/Adverse Reactions: Allergies Allergy/AdvReac Type Severity Reaction Status Date / Time codeine Allergy N/V, Verified 03/11/15 23:54 HALLUCINATIONS Sulfa (Sulfonamide Allergy SEVERE N/V Verified 03/11/15 23:54 Antibiotics) Medications: Current Medications Acetaminophen (Tylenol) 650 mg PO Q6H PRN PRN Reason: Fever>101/(Mi/Mod/Sev) Pain Amlodipine Besylate (Norvasc) 7.5 mg PO DAILY [facility] Last Admin: 09/03/18 08:28 Dose: 7.5 mg Aspirin (Ecotrin) 81 mg PO DAILY [facility] Last Admin: 09/03/18 08:29 Dose: 81 mg Cefdinir (Omnicef) 300 mg PO DAILY [facility] Last Admin: 09/03/18 08:27 Dose: 300 mg Clonidine (Catapres) 0.1 mg PO DAILYPRN PRN PRN Reason: PRN SBP > 190 Last Admin: 09/02/18 00:21 Dose: 0.1 mg Clopidogrel Bisulfate (Plavix) 75 mg PO MWF [facility] Last Admin: 09/02/18 07:48 Dose: 75 mg Coenzyme Q10 (Coenzyme Q10) 200 mg PO DAILY [facility] Last Admin: 09/03/18 08:29 Dose: 200 mg Furosemide (Lasix) 20 mg PO DAILY [facility] Last Admin: 09/03/18 08:29 Dose: 20 mg Nitroglycerin (Nitrostat) 0.4 mg SL Q5MIN PRN PRN Reason: Chest Pain Nitroglycerin (Nitro-Dur 0.6mg/Hr Patch) 1 patch TD DAILY [facility] Last Admin: 09/03/18 08:29 Dose: 1 patch Olmesartan (Benicar) 40 mg PO DAILY [facility] Last Admin: 09/03/18 08:29 Dose: 40 mg Polyethylene Glycol (Miralax) 17 gm PO DAILY [facility] Last Admin: 09/03/18 08:30 Dose: Not Given Ranolazine (Ranexa) 500 mg PO BID [facility] Last Admin: 09/03/18 08:26 Dose: 500 mg Rosuvastatin Calcium (Crestor) 20 mg PO HS [facility] Last Admin: 09/02/18 21:30 Dose: 20 mg Saccharomyces Boulardii (Florastor) 250 mg PO 1600 [facility] Last Admin: 09/02/18 16:59 Dose: 250 mg Sodium Chloride (Flush - Normal Saline) 10 ml IVF Q12HR [facility] Last Admin: 09/03/18 08:26 Dose: 10 ml Sodium Chloride (Flush - Normal Saline) 10 ml IVF PRN PRN PRN Reason: Saline Flush
[2018-09-03] MEDS: Acetaminophen 325 MG TAB PO PRN (14:40)
[2018-09-03] MEDS: Saccharomyces boulardii 250 MG CAP PO SCH (15:33)
[2018-09-03] MEDS: Rosuvastatin 20 MG TAB PO SCH (21:09)
[2018-09-04] MEDS: Sodium Chloride 0.9% 1,000 ML IV SCH (03:18)
[2018-09-04 04:10] LABS: Anion Gap 13 mmol/L (10-20); BUN (Urea Nitrogen) 19 mg/dL (9.8-20.1); Calc. Creatinine Clearance 29 mL/min (70-130); Calcium 9.2 mg/dL (7.8-10.44); Carbon Dioxide 21 mmol/L (23-31); Chloride 110 mmol/L (98-107); Estimated GFR-MDRD 38; Glucose 110 mg/dL (83-110); Potassium 3.6 mmol/L (3.5-5.1); Sodium 140 mmol/L (136-145)
[2018-09-04] MEDS: Nitroglycerin 0.6mg/Hour PATCH TD SCH (06:13)
[2018-09-04] MEDS: Cefdinir 300 MG CAP PO SCH ×3 (06:14→20:15)
[2018-09-04] MEDS: Amlodipine 5 MG TAB PO SCH (06:14)
[2018-09-04] MEDS: Ubidecarenone 50 MG CAP PO SCH (06:15)
[2018-09-04] MEDS: Aspirin 81 mg Enteric Coated Tablet PO SCH (06:15)
--- NOTE | 2018-09-04 07:40 | PDOC.PN ---
- Subjective Encounter Start Date: 09/04/18 Encounter Start Time: 10:40 Subjective: Patient with chest pain with any activity, none at rest. No other complaint - Objective MAR Reviewed: Yes Vital Signs & Weight: Vital Signs (12 hours) Temp Pulse Resp BP BP Pulse Ox 09/04/18 07:06 97.7 F 65 16 150/63 H 97 09/04/18 06:14 64 149/66 H 09/04/18 03:15 98 F 64 18 149/66 H 97 09/03/18 23:55 66 180/75 H 09/03/18 20:00 98.2 F 66 18 182/72 H 95 Weight Weight 132 lb 3.2 oz I&O: 09/03/18 09/04/18 09/05/18 06:59 06:59 06:59 Intake Total 920 Output Total 1850 Balance -930 Result Diagrams: 09/02/18 07:17 09/04/18 03:32 Phys Exam - Physical Examination Constitutional: NAD HEENT: moist MMs Respiratory: no wheezing, no rales, no rhonchi Cardiovascular: RRR, no significant murmur Gastrointestinal: soft Musculoskeletal: no edema Neurological: non-focal, moves all 4 limbs Psychiatric: normal affect, A&O x 3 Dx/Plan (1) Chest pain Code(s): R07.9 - CHEST PAIN, UNSPECIFIED Status: Acute Comment: exertional angina, not improved with medical therapy, likely cath, hydrating kidneys and awaiting decision by Dr. Mclaughlin (2) UTI (urinary tract infection) Status: Acute Qualifiers: Urinary tract infection type: acute cystitis Comment: Klebsiella pneumonia sp, on Omnicef since 09/01, renally dosed, increase to BID with improved GFR (3) CAP (community acquired pneumonia) Code(s): J18.9 - PNEUMONIA, UNSPECIFIED ORGANISM Status: Suspected Qualifiers: Laterality: left Lung location: lower lobe of lung Qualified Code(s): J18.1 - Lobar pneumonia, unspecified organism Comment: on Omnicef (4) CKD (chronic kidney disease) stage 3, GFR 30-59 ml/min Code(s): N18.3 - CHRONIC KIDNEY DISEASE, STAGE 3 (MODERATE) Status: Acute Comment: acute on chronic, improved with hydration (5) Hyperlipidemia Code(s): E78.5 - HYPERLIPIDEMIA, UNSPECIFIED Status: Chronic (6) Hypertension Code(s): I10 - ESSENTIAL (PRIMARY) HYPERTENSION Status: Chronic - Plan cont current plan of care, continue antibiotics, DVT proph w/SCDs plan for cath tomorrow * . - Discharge Day Encounter end time: 10:50
[2018-09-04] MEDS: Polyethylene Glycol 3350 17 GM Packet PO SCH (08:19)
[2018-09-04] MEDS: Furosemide 20 MG TAB PO SCH (08:21)
[2018-09-04] MEDS ORDERED: Sodium Chloride 0.9% 1,000 ML IV SCH (08:49)
[2018-09-04] MEDS ORDERED: Communication Order-Pharmacy FS SCH (09:00)
--- NOTE | 2018-09-04 09:51 | PRG ---
DATE OF SERVICE: 09/04/2018 SUBJECTIVE: Ms. Fagan is doing well today, but she has been having increasing amounts of angina as is outlined in the chart, even minimal exertion is causing angina. OBJECTIVE: VITAL SIGNS: Her blood pressure is variable, most recent 150/60, pulse 65 and it is regular. LUNGS: Clear. CARDIAC: Normal S1, normal S2. ABDOMEN: Soft, nontender. EXTREMITIES: There is not any edema. LABORATORY DATA: The creatinine is 1.3, which is further improved. ASSESSMENT: 1. Recurrent angina, severe. 2. Previous catheterization showing patent graft with diffusely diseased LAD. 3. Ischemia in the LAD distribution. I had a long discussion with the patient and family, it is not totally clear that further intervention is feasible. If her angina is worse due to progression in the LAD, there would be no further intervention indicated or appropriate. If she does have a stenosis in the diagonal graft, consideration for stent implantation to the diagonal could be given. There would be increased risk due to the distribution and intervening on vein grafts that would at least be a potentially feasible option. Discussed risks of the procedure including embolization of debris causing myocardial infarction. They understand the risk of renal failure, although the kidney function has improved to some degree, they wished to proceed. We will schedule this for tomorrow morning, to continue hydration today. Job ID: [id number]
[2018-09-04] MEDS: Saccharomyces boulardii 250 MG CAP PO SCH (15:07)
[2018-09-04] MEDS: Rosuvastatin 20 MG TAB PO SCH (20:14)
[2018-09-05] MEDS ORDERED: Sodium Chloride 0.9% 1,000 ML IV SCH (05:00)
[2018-09-05] MEDS: Polyethylene Glycol 3350 17 GM Packet PO SCH (05:03)
[2018-09-05] MEDS: Nitroglycerin 0.6mg/Hour PATCH TD SCH (05:07)
[2018-09-05] MEDS: Amlodipine 5 MG TAB PO SCH (05:08)
[2018-09-05] MEDS: Cefdinir 300 MG CAP PO SCH ×2 (05:09→20:53)
[2018-09-05] MEDS: Aspirin 81 mg Enteric Coated Tablet PO SCH (05:10)
[2018-09-05] MEDS: Ubidecarenone 50 MG CAP PO SCH (05:10)
[2018-09-05] MEDS: Clopidogrel Bisulfate 75 MG TAB PO SCH (05:11)
[2018-09-05] MEDS ORDERED: Diazepam 5 MG TAB PO SCH (06:00)
[2018-09-05 06:05] LABS: #Basophils 0.1 thou/uL (0.0-0.2); #Eosinphils 0.4 thou/uL (0.0-0.7); #Lymphocytes 2.3 thou/uL (1.20-3.40); #Monocytes 0.7 thou/uL (0.11-0.59); #Neutrophils 4.8 thou/uL (1.40-6.50); %Eosinophils 5.4 % (0.0-10.0); %Lymphocytes 28.1 % (21.0-51.0); %Neutrophils 57.5 % (42.0-75.0); Hemoglobin 11.7 g/dL (12.0-16.0); Mean Corpuscular HGB CONC 33.2 g/dL (32.0-36.0); Mean Corpuscular Hemoglobin 29.5 pg (27.0-31.0); Mean Platelet Volume 8.2 fL (7.4-10.4); Platelet Count 304 thou/uL (130-400); RBC Distribution Width 12.1 % (11.5-14.5); Red Blood Cell (RBC) Count 3.95 mill/uL (4.20-5.40); White Blood Cell (WBC) Count 8.3 thou/uL (4.8-10.8)
[2018-09-05 06:20] LABS: Calcium 9.1 mg/dL (7.8-10.44); Chloride 111 mmol/L (98-107); Potassium 3.3 mmol/L (3.5-5.1); Sodium 138 mmol/L (136-145)
[2018-09-05 06:28] LABS: BUN (Urea Nitrogen) 14 mg/dL (9.8-20.1); Calc. Creatinine Clearance 34 mL/min (70-130); Carbon Dioxide 19 mmol/L (23-31); Estimated GFR-MDRD 47; Glucose 113 mg/dL (83-110)
[2018-09-05 06:35] LABS: Anion Gap 11 mmol/L (10-20)
[2018-09-05] MEDS ORDERED: Midazolam HCl 2 mg/2 ml Vial ONE (07:24)
[2018-09-05] MEDS ORDERED: Fentanyl 100 MCG/2 ML VIAL ONE (07:25)
[2018-09-05] MEDS ORDERED: Nitroglycerin 0.4 MG TAB (25 Tab Bottle) SL PRN (08:29)
[2018-09-05] MEDS ORDERED: Sodium Chloride 0.9% 200 ML IV PRN (08:29)
[2018-09-05] MEDS ORDERED: Carvedilol 3.125 MG TAB PO SCH (08:45)
[2018-09-05] MEDS ORDERED: Amlodipine 5 MG TAB PO SCH ×2 (09:00→09:30)
[2018-09-05] MEDS: Sodium Chloride 0.9% 1,000 ML IV SCH ×2 (09:06→16:06)
[2018-09-05] MEDS: Amlodipine 10 MG TAB PO SCH (09:27)
[2018-09-05] MEDS ORDERED: Iopamidol 370 76% 100 ML VIAL ONE (12:19)
[2018-09-05] MEDS: Carvedilol 3.125 MG TAB PO SCH (17:28)
[2018-09-05] MEDS: Saccharomyces boulardii 250 MG CAP PO SCH (17:28)
--- NOTE | 2018-09-05 17:56 | PDOC.PN ---
- Subjective Encounter Start Date: 09/05/18 Encounter Start Time: 17:45 Subjective: f/u for severe angina with LHC showing diffuse CAD with recommendations -: for medical mgmt. - Objective MAR Reviewed: Yes Vital Signs & Weight: Vital Signs (12 hours) Temp Pulse Resp BP BP BP Pulse Ox 09/05/18 15:55 98.2 F 64 18 160/72 H 95 09/05/18 12:55 177/74 H 147/67 H 09/05/18 11:20 97.8 F 64 18 152/66 H 97 09/05/18 09:35 70 179/74 H 09/05/18 09:27 70 179/74 H 09/05/18 08:50 97 09/05/18 08:45 97.6 F 69 18 159/72 H 97 Weight Weight 130 lb 3.2 oz I&O: 09/04/18 09/05/18 09/06/18 06:59 06:59 06:59 Intake Total 1460 1370 Output Total 1350 2200 Balance 110 -830 Result Diagrams: 09/05/18 05:33 09/05/18 05:33 Additional Labs: Microbiology 09/01/18 14:23 Urine clean catch Urine Culture - Final Klebsiella pneumoniae ssp pneu Laboratory Tests 08/31/18 09/01/18 09/02/18 15:53 04:43 07:17 WBC 12.7 H 12.2 H Potassium 4.3 Creatinine 1.42 H 09/02/18 09/03/18 09/04/18 07:17 11:09 03:32 WBC 7.7 Potassium 4.0 3.6 Creatinine 1.45 H 1.31 H EKG Reviewed by me: Yes (Tele - SR) Phys Exam - Physical Examination Constitutional: NAD HEENT: PERRLA, sclera anicteric, oral pharynx no lesions Neck: no nodes, no JVD, supple, full ROM Respiratory: no wheezing, no rales, no rhonchi, clear to auscultation bilateral S1, S2 Cardiovascular: RRR, no significant murmur, no rub, gallop Gastrointestinal: soft, non-tender, no distention, positive bowel sounds Musculoskeletal: no edema, pulses present Neurological: normal sensation, moves all 4 limbs Psychiatric: A&O x 3 Skin: normal turgor, cap refill <2 seconds Dx/Plan (1) CAD (coronary artery disease) Code(s): I25.10 - ATHSCL HEART DISEASE OF [place] CORONARY ARTERY W/O ANG PCTRS Status: Chronic Qualifiers: Associated angina: with unstable angina Comment: Plan for maximal med mgmt and no acute intervention after C findings , consider Palliative option, continue ASA/Plavix (2) Unstable angina Status: Acute Comment: Continue anti-anginals with Norvasc, Ranexa, Nitrates, Coreg (3) CKD (chronic kidney disease) stage 3, GFR 30-59 ml/min Code(s): N18.3 - CHRONIC KIDNEY DISEASE, STAGE 3 (MODERATE) Status: Acute Comment: Avoid nephrotoxic agents and limit contrast exposure (4) UTI (urinary tract infection) Status: Acute Qualifiers: Urinary tract infection type: acute cystitis Comment: Klebsiella pneumonia sp, on Omnicef since 09/01, renally dosed, increase to BID with improved GFR (5) Hypertension Code(s): I10 - ESSENTIAL (PRIMARY) HYPERTENSION Status: Chronic Qualifiers: Hypertension type: essential hypertension Qualified Code(s): I10 - Essential (primary) hypertension Comment: Stable, continue home BP regimen - Plan continue antibiotics, clinical social work aide, out of bed/ambulate, DVT proph w/SCDs Stable currently -: Continue dual anti-platelet therapy with ASA/Plavix -: Consider Palliative options -: Continue Omnicef -: Likely home in 24h * .
[2018-09-05] MEDS ORDERED: Polyethylene Glycol 3350 17 GM Packet PO SCH (20:45)
[2018-09-05] MEDS: Rosuvastatin 20 MG TAB PO SCH (20:53)
[2018-09-05] MEDS ORDERED: Ondansetron PF 4 MG/2 ML Vial IVP PRN (21:31)
[2018-09-05] MEDS: cloNIDine 0.1 MG TAB PO PRN (23:41)
[2018-09-05] MEDS: Acetaminophen 325 MG TAB PO PRN (23:41)
[2018-09-06 08:02] VITALS: TEMP 98.1
[2018-09-06 08:04] VITALS: BP 161/88
[2018-09-06] MEDS ORDERED: Furosemide 20 MG TAB PO SCH (09:00)
[2018-09-06] MEDS: Ubidecarenone 50 MG CAP PO SCH (09:09)
[2018-09-06] MEDS: Carvedilol 3.125 MG TAB PO SCH (09:10)
[2018-09-06] MEDS: Clopidogrel Bisulfate 75 MG TAB PO SCH (09:10)
[2018-09-06] MEDS: Aspirin 81 mg Enteric Coated Tablet PO SCH (09:10)
[2018-09-06] MEDS: Cefdinir 300 MG CAP PO SCH (09:10)
[2018-09-06] MEDS: Amlodipine 10 MG TAB PO SCH (09:10)
[2018-09-06] MEDS: Polyethylene Glycol 3350 17 GM Packet PO SCH (09:11)
[2018-09-06] MEDS: Nitroglycerin 0.6mg/Hour PATCH TD SCH (09:16)
[2018-09-06] MEDS ORDERED: Potassium Chloride 20 MEQ TAB PO SCH (09:45)
--- NOTE | 2018-09-06 10:02 | PRG ---
DATE OF SERVICE: 09/06/2018 SUBJECTIVE: Ms. Fagan is doing better today. She did have an episode of high blood pressure up to 190 systolic last night. Today, she is feeling better. OBJECTIVE: VITAL SIGNS: Blood pressure 160/80, pulse 56. LUNGS: Clear. CARDIAC: Normal S1 and S2. ASSESSMENT AND PLAN: 1. Coronary artery disease with occluded left main and right coronary artery. 2. Patent grafts internal mammary to diffusely diseased left anterior descending artery. Patent diagonal graft with approximately 60% stenosis to the saphenous vein graft to the diagonal. Some views may make it look more like 70%. 3. Patent graft to the obtuse marginal circumflex system with a moderate disease. 4. Patent saphenous vein graft to large distribution right coronary. 5. Normal ejection fraction. At this time, medical therapy seems to be most appropriate. The ischemia on the nuclear imaging is to the anterior wall, not really the anterolateral wall where the diagonal graft supplies. I do not think stenting the diagonal graft would likely improve her symptoms. Also, there is a high risk of complications with stenting vein grafts, which have been in place for many years, especially small diameter vessels. The medical therapy will be attempted at this point. Currently, she is on Benicar 40 mg a day. 1. Amlodipine 10 mg a day. 2. Furosemide 20 mg a day. 3. Aspirin. 4. Plavix 75 mg a day. 5. Isosorbide mononitrate 60 mg a day. 6. Ranolazine 1000 mg twice a day. Long-term prognosis is guarded. The patient's cholesterol is well controlled. Renal function improved with hydration during this admission. Creatinine down to 1.11. Job ID: [id number]
--- NOTE | 2018-09-07 08:26 | DIS ---
DATE OF ADMISSION: 09/01/2018 DATE OF DISCHARGE: 09/06/2018 DISCHARGE DIAGNOSES: 1. Coronary artery disease, severe. Medical management. 2. Unstable angina. 3. Chronic kidney disease stage 3. 4. Urinary tract infection with Klebsiella pneumonia. 5. Hypertension, stable. CONSULTATIONS: Dr. Mclaughlin with Cardiology Service. PERTINENT LABORATORY AND X-RAY FINDINGS: Creatinine ranged between 1.11 to 2.57. Estimated GFR ranged between 18 to 47. Troponin I negative x3. BNP 38. Total cholesterol 112, triglycerides 192, HDL 35, LDL 39. Lipase 65. CBC showed a white blood cell count ranged between 7.7 to 12.7, hemoglobin ranged between 11.6 to 13.7. Urine culture dated 09/01/2018, showed greater than 100,000 colonies of Klebsiella pneumoniae species pansensitive except for Macrobid. Cardiolite stress test dated 09/01/2018, showed reversible ischemia at the anteroseptal wall suggestive of ischemia. Calculated ejection fraction of 77%. Cardiac catheterization dated 09/05/2018, showed 100% occlusion in the left main and mid RCA. Patent saphenous vein graft to the diagonal, obtuse marginal, and posterior descending artery. Patent VEL[place]QUEZ to diffusely diseased left anterior descending. Ejection fraction 55%. HOSPITAL COURSE: The patient was initially admitted to the telemetry unit after presenting with unstable angina in the context of known advanced coronary artery disease, status post coronary artery bypass grafting. Serial troponin I was negative x3. At which point, the patient proceeded to Cardiolite stress testing showing a reversible ischemia in the anteroseptal wall. The patient was evaluated by the Cardiology Service, undergoing cardiac catheterization showing diffuse coronary artery disease, not amenable to surgical intervention. Recommendations are to maximize medical therapy on an ongoing basis after discharge. The patient was titrated on her antianginal regimen with increasing amlodipine to 10 mg daily and additional Coreg 3.125 mg b.i.d. The patient was also increased on Ranexa to 1000 mg b.i.d. The patient was also treated for urinary tract infection with Klebsiella species, transitioning to Omnicef 300 mg b.i.d. to complete a 5-day course of therapy after discharge. I have examined the patient at time of discharge and discussed followup instructions. The patient verbalized understanding and agreement ready for discharge on 09/06/2018. DISCHARGE MEDICATIONS: 1. Enteric-coated aspirin 81 mg p.o. daily. 2. Plavix 75 mg Tuesday, Tuesday, and Tuesday. 3. Calcium carbonate 600 mg p.o. b.i.d. 4. Zyrtec 10 mg p.o. at bedtime. 5. Vitamin D3 2000 units two tablets p.o. daily. 6. Catapres 0.1 mg as needed for systolic blood pressure greater than or equal to 190. 7. Nexium 40 mg p.o. daily. 8. Estradiol 10 mcg vaginally 2 times per week. 9. Flonase 1 spray in each naris daily. 10. Lasix 20 mg p.o. daily. 11. Isosorbide mononitrate 60 mg p.o. daily. 12. Nitroglycerin 0.4 mg sublingually q.5 minutes p.r.n. chest pain. 13. Benicar 40 mg p.o. daily. 14. [place]-3 fatty acids 2 g p.o. b.i.d. 15. MiraLAX 17 g p.o. daily p.r.n. 16. Restasis ophthalmic drops 1 drop to each eye b.i.d. 17. Crestor 20 mg p.o. at bedtime. 18. Coenzyme Q10 of 200 mg p.o. daily. 19. Norvasc 10 mg p.o. daily. 20. Coreg 3.125 mg p.o. b.i.d. 21. Omnicef 300 mg p.o. b.i.d. x5 days. 22. Ranexa 1000 mg p.o. b.i.d. FOLLOWUP: The patient will follow up with her primary care provider, Dr. Tommy Barrios within 7 days of discharge. The patient will follow up with Dr. Mclaughlin 3-4 weeks after discharge. CONDITION ON DISCHARGE: Stable. ACTIVITY: Ad-jerome. DIET: Heart healthy. CODE STATUS: Full. DISPOSITION: Home on 09/06/2018. TIME SPENT: Total time preparing and coordinating discharge is 35 minutes. Job ID: [id number]
== END 2018-09-06 11:34 | disposition home or self-care (01) | DRG 286 ==
LOC: ERS 15:40 → 2SW 18:37 → OBSVTOIN 09-01 17:17 → 2NO 09-01 21:38
PROVIDERS: ADMIT Family Medicine; ATTEND Family Medicine
PROC: 4A023N8 Measurement of Cardiac Sampling and Pressure, Bilateral, Percutaneous Approach (ICD-10-PCS; principal; 2018-09-05)
PROC: B2181ZZ Fluoroscopy of Left Internal Mammary Bypass Graft using Low Osmolar Contrast (ICD-10-PCS; 2018-09-05)
PROC: B2111ZZ Fluoroscopy of Multiple Coronary Arteries using Low Osmolar Contrast (ICD-10-PCS; 2018-09-05)
PROC: B2131ZZ Fluoroscopy of Multiple Coronary Artery Bypass Grafts using Low Osmolar Contrast (ICD-10-PCS; 2018-09-05)
PROC: B2161ZZ Fluoroscopy of Right and Left Heart using Low Osmolar Contrast (ICD-10-PCS; 2018-09-05)
DX: I25.110 Atherosclerotic heart disease of native coronary artery with unstable angina pectoris (principal); J18.9 Pneumonia, unspecified organism; N17.9 Acute kidney failure, unspecified; N39.0 Urinary tract infection, site not specified; B96.1 Klebsiella pneumoniae [K. pneumoniae] as the cause of diseases classified elsewhere; E78.5 Hyperlipidemia, unspecified; M81.0 Age-related osteoporosis without current pathological fracture; I12.9 Hypertensive chronic kidney disease with stage 1 through stage 4 chronic kidney disease, or unspecified chronic kidney disease; N18.3 Chronic kidney disease, stage 3 (moderate); K58.0 Irritable bowel syndrome with diarrhea; I25.82 Chronic total occlusion of coronary artery; Z95.1 Presence of aortocoronary bypass graft; Z90.49 Acquired absence of other specified parts of digestive tract; Z90.710 Acquired absence of both cervix and uterus; Z88.5 Allergy status to narcotic agent; Z88.2 Allergy status to sulfonamides; Z79.82 Long term (current) use of aspirin; Z79.899 Other long term (current) drug therapy
CPT/HCPCS: 36415; 71045; 76942; 78452; 80048; 80053; 80061; 81001; 82550; 83605; 83690; 83880; 84145; 84484; 85025; 87077; 87086; 87186; 93005; 93017; 93459; 96360; 99152; 99153; A9500; C1769; J0153; J1644; J2250; J2405; J3010; Q9967

== ENCOUNTER 2021-02-24 11:03 | Inpatient (IN) | payer MEDICARE, OTHER ==
[2021-02-24] MEDS ORDERED: methylPREDNISolone Sod Succ/PF 125 MG/2 ML VIAL ONE (11:50)
[2021-02-24 11:57] LABS: #Basophils 0.1 thou/uL (0.0-0.2); #Eosinphils 0.2 thou/uL (0.0-0.7); #Lymphocytes 1.9 thou/uL (1.20-3.40); #Monocytes 0.4 thou/uL (0.11-0.59); %Basophils 1.5 % (0.0-1.0); %Eosinophils 4.2 % (0.0-10.0); %Lymphocytes 33.5 % (21.0-51.0); %Monocytes 7.5 % (0.0-10.0); %Neutrophils 53.4 % (42.0-75.0); Hemoglobin 12.2 g/dL (12.0-16.0); Mean Corpuscular HGB CONC 33.1 g/dL (32.0-36.0); Mean Corpuscular Hemoglobin 29.6 pg (27.0-31.0); Mean Corpuscular Volume 89.2 fL (78.0-98.0); Mean Platelet Volume 8.1 fL (7.4-10.4); Platelet Count 350 thou/uL (130-400); RBC Distribution Width 11.8 % (11.5-14.5); Red Blood Cell (RBC) Count 4.12 mill/uL (4.20-5.40); White Blood Cell (WBC) Count 5.6 thou/uL (4.8-10.8)
[2021-02-24 12:20] LABS: ALT (SGPT) 11 U/L (8-55); AST (SGOT) 16 U/L (5-34); Albumin 3.9 g/dL (3.4-4.8); Alkaline Phosphatase 41 U/L (40-110); Anion Gap 13 mmol/L (10-20); BUN (Urea Nitrogen) 35 mg/dL (9.8-20.1); Bilirubin, Total 0.5 mg/dL (0.2-1.2); Calc. Creatinine Clearance 0 mL/min (70-130); Calcium 9.8 mg/dL (7.8-10.44); Carbon Dioxide 22 mmol/L (23-31); Chloride 106 mmol/L (98-107); Globulin 2.8 g/dL (2.4-3.5); Glucose 125 mg/dL (83-110); Lipase 36 U/L (8-78); Potassium 4.8 mmol/L (3.5-5.1); Protein, Total 6.7 g/dL (5.8-8.1); Sodium 136 mmol/L (136-145)
[2021-02-24] MEDS ORDERED: Ipratropium Bromide 2.5 ml Neb ONE (13:41)
[2021-02-24] MEDS ORDERED: Albuterol Sulfate 2.5 mg/0.5 ml Neb ONE (13:41)
[2021-02-24] MEDS ORDERED: Acetaminophen 325 MG TAB PO PRN (16:13)
[2021-02-24] MEDS ORDERED: Ondansetron PF 4 MG/2 ML Vial IVP PRN (16:13)
[2021-02-24] MEDS ORDERED: Loperamide HCl 2 MG CAP PO PRN (16:13)
[2021-02-24] MEDS ORDERED: Senokot S 8.6-50 MG TAB PO PRN (16:13)
[2021-02-24] MEDS ORDERED: Bisacodyl 10 MG SUPP PR PRN (16:13)
[2021-02-24] MEDS ORDERED: Calcium Carbonate 500 MG ChewTAB PO PRN (16:13)
[2021-02-24] MEDS ORDERED: Zolpidem Tartrate 5 MG TAB PO PRN (16:13)
[2021-02-24] MEDS ORDERED: Ondansetron ODT 4 MG TAB PO PRN (16:13)
[2021-02-24] MEDS ORDERED: cefTRIAXone\\ROCEPHIN 1 GM in Sodium Chloride 0.9% 100 ML IVPB SCH ×2 (16:30→18:00)
[2021-02-24 17:05] LABS: Troponin I Less than 0.010 ng/mL (< 0.028)
[2021-02-24 18:00] VITALS: BMI 23.7
[2021-02-24] MEDS: Budesonide 0.5 MG/2 ML NEB NEB SCH (18:25)
[2021-02-24] MEDS: Guaifenesin DM 100-10/5 ML UDCUP PO PRN (18:40)
[2021-02-24] MEDS: Doxycycline 100 MG CAP PO SCH (20:55)
[2021-02-24] MEDS: cefTRIAXone\\ROCEPHIN 1 GM in Sodium Chloride 0.9% 100 ML IVPB SCH (20:56)
[2021-02-25 05:15] LABS: #Lymphocytes 1.3 thou/uL (1.20-3.40); #Monocytes 0.2 thou/uL (0.11-0.59); #Neutrophils 8.9 thou/uL (1.40-6.50); %Eosinophils 0.1 % (0.0-10.0); %Lymphocytes 12.6 % (21.0-51.0); %Monocytes 1.8 % (0.0-10.0); %Neutrophils 85.5 % (42.0-75.0); Hemoglobin 11.2 g/dL (12.0-16.0); Mean Corpuscular HGB CONC 31.8 g/dL (32.0-36.0); Mean Corpuscular Hemoglobin 28.9 pg (27.0-31.0); Mean Corpuscular Volume 90.8 fL (78.0-98.0); Mean Platelet Volume 8.2 fL (7.4-10.4); Platelet Count 353 thou/uL (130-400); RBC Distribution Width 11.8 % (11.5-14.5); Red Blood Cell (RBC) Count 3.87 mill/uL (4.20-5.40); White Blood Cell (WBC) Count 10.4 thou/uL (4.8-10.8)
[2021-02-25 05:44] LABS: ALT (SGPT) 13 U/L (8-55); AST (SGOT) 17 U/L (5-34); Albumin 3.7 g/dL (3.4-4.8); Alkaline Phosphatase 42 U/L (40-110); Anion Gap 12 mmol/L (10-20); BUN (Urea Nitrogen) 44 mg/dL (9.8-20.1); Bilirubin, Total 0.2 mg/dL (0.2-1.2); Calc. Creatinine Clearance 13 mL/min (70-130); Calcium 9.4 mg/dL (7.8-10.44); Carbon Dioxide 22 mmol/L (23-31); Chloride 105 mmol/L (98-107); Globulin 2.6 g/dL (2.4-3.5); Glucose 187 mg/dL (83-110); Potassium 4.4 mmol/L (3.5-5.1); Protein, Total 6.3 g/dL (5.8-8.1); Sodium 135 mmol/L (136-145)
[2021-02-25] MEDS ORDERED: Nitroglycerin 0.4 MG TAB (25 Tab Bottle) SL SCH (07:00)
[2021-02-25] MEDS: Budesonide 0.5 MG/2 ML NEB NEB SCH ×2 (07:53→18:38)
[2021-02-25] MEDS ORDERED: Famotidine 20 MG TAB PO SCH (09:00)
[2021-02-25] MEDS ORDERED: Non-Formulary Item 1 EACH (Esomeprazole Magnesium [Nexium] 20 MG Capsule.Dr) PO SCH (09:00)
[2021-02-25] MEDS ORDERED: Non-Formulary Item 1 EACH (Polyethylene Glycol 3350 [Miralax] 119 GM Bottle) PO SCH (09:00)
[2021-02-25] MEDS ORDERED: Fluticasone Propionate Nasal Spray 16 gm Bottle NASAL SCH (09:00)
[2021-02-25] MEDS: Aspirin 81 mg Enteric Coated Tablet PO SCH (09:16)
[2021-02-25] MEDS: Clopidogrel Bisulfate 75 MG TAB PO SCH (09:16)
[2021-02-25] MEDS: Doxycycline 100 MG CAP PO SCH ×2 (09:17→20:23)
[2021-02-25] MEDS: Polyethylene Glycol 3350 17 GM Packet PO SCH (09:18)
[2021-02-25 11:28] LABS: SARS-CoV-2 PCR by NAA Not Detected (NotDetected)
[2021-02-25] MEDS: Sodium Chloride 0.9% 1,000 ML IV SCH (11:57)
[2021-02-25] MEDS: Fluticasone Propionate Nasal Spray 16 gm Bottle NASAL SCH (12:02)
[2021-02-25 15:54] LABS: Bacteria/HPF None Seen HPF (None Seen); Bilirubin Negative (Negative); Blood, Urine Negative (Negative); Clarity Clear (Clear); Glucose, Urine (Dipstick) Normal (Negative); Ketone, Urine Negative (Negative); Leukocyte 250 Leu/uL (Negative); Nitrite Negative (Negative); Protein, Urine (Dipstick) Negative (Neg-Trace); RBC/HPF 0-3 HPF (0-3); Specific Gravity, Urine 1.018 (1.002-1.036); Squamous Epithelial 0-3 HPF (0-3); Urobilinogen Normal mg/dL (Less than 2)
[2021-02-25 15:55] LABS: Urine Culture Reflex Yes Yes
[2021-02-25] MEDS: Guaifenesin DM 100-10/5 ML UDCUP PO PRN ×2 (16:05→20:24)
[2021-02-25 16:24] LABS: Creatinine, Urine 135.28 mg/dL (47-110)
[2021-02-25] MEDS: cefTRIAXone\\ROCEPHIN 1 GM in Sodium Chloride 0.9% 100 ML IVPB SCH (20:23)
[2021-02-25] MEDS ORDERED: Rosuvastatin 20 MG TAB PO SCH ×2 (21:00)
[2021-02-25] MEDS ORDERED: Cetirizine HCl 10 MG TAB PO SCH (21:00)
[2021-02-25] MEDS ORDERED: Loratadine 10 MG TAB PO SCH (21:00)
[2021-02-25] MEDS ORDERED: Sodium Bicarbonate Tab 325 MG TAB PO SCH (21:00)
[2021-02-26] MEDS: Sodium Chloride 0.9% 1,000 ML IV SCH (03:53)
[2021-02-26 05:07] LABS: #Basophils 0.1 thou/uL (0.0-0.2); #Eosinphils 0.1 thou/uL (0.0-0.7); #Lymphocytes 3.3 thou/uL (1.20-3.40); #Monocytes 0.7 thou/uL (0.11-0.59); #Neutrophils 6.7 thou/uL (1.40-6.50); %Basophils 0.5 % (0.0-1.0); %Eosinophils 0.7 % (0.0-10.0); %Lymphocytes 30.5 % (21.0-51.0); %Monocytes 6.7 % (0.0-10.0); %Neutrophils 61.6 % (42.0-75.0); Hemoglobin 10.4 g/dL (12.0-16.0); Mean Corpuscular HGB CONC 33.9 g/dL (32.0-36.0); Mean Corpuscular Hemoglobin 30.7 pg (27.0-31.0); Mean Corpuscular Volume 90.4 fL (78.0-98.0); Mean Platelet Volume 7.9 fL (7.4-10.4); Platelet Count 364 thou/uL (130-400); RBC Distribution Width 12.1 % (11.5-14.5); White Blood Cell (WBC) Count 10.9 thou/uL (4.8-10.8)
[2021-02-26 05:27] LABS: Anion Gap 13 mmol/L (10-20); BUN (Urea Nitrogen) 40 mg/dL (9.8-20.1); Calc. Creatinine Clearance 18 mL/min (70-130); Calcium 8.6 mg/dL (7.8-10.44); Carbon Dioxide 21 mmol/L (23-31); Chloride 109 mmol/L (98-107); Glucose 115 mg/dL (83-110); Potassium 4.1 mmol/L (3.5-5.1); Sodium 139 mmol/L (136-145)
[2021-02-26] MEDS: Budesonide 0.5 MG/2 ML NEB NEB SCH (06:22)
[2021-02-26 08:33] VITALS: BP 137/69; TEMP 98.6
[2021-02-26] MEDS ORDERED: Amlodipine 5 MG TAB PO SCH (09:00)
[2021-02-26] MEDS ORDERED: Sodium Bicarbonate Tab 325 MG TAB PO SCH (09:00)
[2021-02-26] MEDS: Guaifenesin DM 100-10/5 ML UDCUP PO PRN (09:06)
[2021-02-26] MEDS: Doxycycline 100 MG CAP PO SCH (09:07)
[2021-02-26] MEDS: Aspirin 81 mg Enteric Coated Tablet PO SCH (09:07)
[2021-02-26] MEDS: Clopidogrel Bisulfate 75 MG TAB PO SCH (09:07)
[2021-02-26] MEDS: Fluticasone Propionate Nasal Spray 16 gm Bottle NASAL SCH (09:10)
[2021-02-26] MEDS: Polyethylene Glycol 3350 17 GM Packet PO SCH (09:11)
== END 2021-02-26 11:47 | disposition home or self-care (01) | DRG 202 ==
LOC: ERS 11:03 → ERHOLD 15:28 → 2SW 17:14 → OBSVTOIN 02-25 09:42
PROVIDERS: ADMIT Internal Medicine; ATTEND Family Medicine
DX: J20.9 Acute bronchitis, unspecified (principal); I25.110 Atherosclerotic heart disease of native coronary artery with unstable angina pectoris; N17.9 Acute kidney failure, unspecified; E87.2 Acidosis; E78.5 Hyperlipidemia, unspecified; I25.10 Atherosclerotic heart disease of native coronary artery without angina pectoris; E78.00 Pure hypercholesterolemia, unspecified; M81.0 Age-related osteoporosis without current pathological fracture; N18.30 Chronic kidney disease, stage 3 unspecified; M47.812 Spondylosis without myelopathy or radiculopathy, cervical region; K58.9 Irritable bowel syndrome, unspecified; I12.9 Hypertensive chronic kidney disease with stage 1 through stage 4 chronic kidney disease, or unspecified chronic kidney disease; D64.9 Anemia, unspecified; Z20.822 Contact with and (suspected) exposure to COVID-19; Z88.5 Allergy status to narcotic agent; Z88.2 Allergy status to sulfonamides; Z79.82 Long term (current) use of aspirin; Z79.899 Other long term (current) drug therapy; Z95.1 Presence of aortocoronary bypass graft; Z90.49 Acquired absence of other specified parts of digestive tract; Z90.710 Acquired absence of both cervix and uterus
CPT/HCPCS: 36415; 71045; 76770; 80048; 80053; 81001; 82550; 82570; 83690; 84156; 84300; 84484; 84540; 85025; 87086; 87631; 93005; 94640; 94760; 96375; G0378; J0696; J2930; J3490; J7050; J7611; J7620; J7626; U0003; U0005

== ENCOUNTER 2021-09-05 10:02 | Emergency (ER) | payer MEDICARE, OTHER | END 2021-09-05 10:49 | disposition home or self-care (01) | LOC: ERS 10:02 | DX: M10.9 Gout, unspecified (principal); M79.674 Pain in right toe(s); I12.9 Hypertensive chronic kidney disease with stage 1 through stage 4 chronic kidney disease, or unspecified chronic kidney disease; N18.9 Chronic kidney disease, unspecified; I25.10 Atherosclerotic heart disease of native coronary artery without angina pectoris; E78.5 Hyperlipidemia, unspecified; M81.0 Age-related osteoporosis without current pathological fracture; C44.91 Basal cell carcinoma of skin, unspecified; C80.1 Malignant (primary) neoplasm, unspecified; Z79.899 Other long term (current) drug therapy ==